=== PATIENT | female | born 1950 | race Caucasian/White ===

== ENCOUNTER 2024-05-10 13:52 | Outpatient (AMB) | payer MEDICARE, SELFPAY ==
[2024-05-10 14:05] VITALS: BP 124/60; PULSE 95; RESP 12; O2SAT 98; BMI 30.3
--- NOTE | 2024-05-10 14:05 | MHC.PC.OV ---
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 Patient reports her previous provider was through [facility]. There are no medical records found in the chart today. Catering Operations Manager Required: No Accompanied by: Self / Same As Patient Allergies No Known Allergies Allergy (Verified 05/10/24 14:12) Tobacco use date assessed: 05/10/24 Fall risk assessment: No Falls in past year Last assessed Fall Risk: 05/10/24 Dental Screening Dental Screen Date: 05/10/24 Did you have a dental visit in the last 12 months?: No Did you have a dental problem in the last 6 months where you did not have access to dental care?: No Was dental information given to patient?: Patient has dentist HPI HPI Comments History of Present Illness Details The patient is a 73-year-old female with a medical history of hypertension, hyperlipidemia, hypothyroid breast cancer, insomnia, allergies, insomnia, B12 deficiency, arthritis presenting to establish care. CV: On amlodipine, aspirin, lipitor. 124/60. Denies chest pain, shortness of breath. Hypothyroid: On levothyroxine 75 mg daily. CKD: Stage 3. Stable Heme/Onc: tamoxifene 20mg daily. Follows with Dr Hansen : On mirtazipine, trazodone. Colonoscopy due 2028 Breast cancer screening 11/2022 [facility] Medical History (Updated 05/20/24 @ 09:50 by Susan Aguirre MD) Breast cancer Asthma Surgical History History of breast surgery History of brain surgery Family History Other Family history unknown Social History Household Members: Spouse Housing: House Are you a primary director of primary care to a significant other at home: No Do you presently have visiting nurse or other home services: No 75 years or older and lives alone: No Alcohol intake: current Alcohol intake frequency: holidays/special occasions only Patient Tobacco Use Status: Never used Tobacco e-Cigarette/Vaping Use: Never Used service: No Current occupational status: retired Current occupational exposures/hazards: No Cognitive needs: No Hearing needs: No Vision needs: No Questionnaire PHQ-9 Over the last 2 weeks, how often have you been bothered by any of the following problems? 1. Little interest or pleasure in doing things: not at all 2. Feeling down, depressed, or hopeless: not at all 3. Trouble falling or staying asleep, or sleeping too much: nearly every day 4. Feeling tired or having little energy: not at all 5. Poor appetite or overeating: not at all 6. Feeling bad about yourself - or that you are a failure or have let yourself or your family down: not at all 7. Trouble concentrating on things, such as reading the newspaper or watching television: not at all 8. Moving or speaking so slowly that other people could have noticed. Or the opposite - being so fidgety or restless that you have been moving around a lot more than usual: not at all 9. Thoughts that you would be better off or of hurting yourself in some way: not at all Total score: 3 Depression Screening Interpretation: Negative (neg) Depression Screening Done: Yes 16413 - PHQ-9 Billing: Yes Source: Developed by Drs. Kal Milian, Regina Mijares, Harinder Magaña and colleagues, with an educational jia from [employer]. Thrive Questionnaire Date Thrive assessed: 05/10/24 I am a: Patient What is your living situation today?: I have a steady place to live Within the past 12 months, did the food you bought not last and you didn't have the money to get more?: Never true Within the past 12 months, did you worry whether your food would run out before you got money to buy more?: Never true Do you have trouble paying for medicines?: No Do you have trouble getting transportation to medical appointments?: No Do you have trouble paying your heating and electricity bill?: No Do you have trouble taking care of your child, family member or friend?: No Do you have trouble with day-to-day activities such as bathing, preparing meals, shopping, managing finances, etc.?: No Are you currently unemployed and looking for a job?: No Are you interested in more education?: No Please select the resources that you would like help with: None Currently or been in a relationship where the following occur: No concerns reported THRIVE Score: 0 AUDIT C Alcohol Use Questionnaire (AUDIT-C) 1. How often do you have a drink containing alcohol?: Monthly or less 2. How many drinks containing alcohol do you have on a typical day when you are drinking?: 1 or 2 3. How often do you have six or more drinks on one occasion?: Never Total Score: 1 ALANA-7 AMB Questionnaire ALANA-7 Date ALANA - 7 assessed: 05/10/24 Feeling nervous, anxious, or on edge: 0 = Not at all Not being able to stop or control worryin = Not at all Worrying too much about different things: 0 = Not at all Trouble relaxin = Not at all Being so restless that it is hard to sit still: 0 = Not at all Becoming easily annoyed or irritable: 0 = Not at all Feeling afraid as if something awful might happen: 0 = Not at all Total ALANA-7 score (0-4 normal; 5-9 mild; 10-14 moderate; 15-21 severe): 0 Source: Developed by Drs. Kal Milian, Regina Mijares, Harinder Magaña and colleagues, with an educational jia from [employer]. ALANA-7 Assessment Billing ALANA-7 Assessment Tool: ALANA-7 Assessment 04495 ACT Questionnaire In the past 4 weeks, how much of the time did your asthma keep you from getting as much done at work, school or at home?: None of the time During the past 4 weeks, how often have you had shortness of breath?: Not at all During the past 4 weeks, how often did your asthma symptoms wake you up at night or earlier than usual in the morning?: Not at all During the past 4 weeks, how often have you had to use your rescue inhaler or nebulizer medication?: Once a week or less How would you rate your asthma control during the past 4 weeks?: Well controlled ACT Interpretation: Negative Score: 23 Physical exam (Primary Care) Vital Signs: Last Vital Signs Pulse 95 05/10/24 14:05 Resp 12 05/10/24 14:05 BP 124/60 05/10/24 14:05 Pulse Ox 98 05/10/24 14:05 Oxygen Delivery Method Room Air 05/10/24 14:05 BMI result Body Mass Index 30.3 Tobacco/Smoking Status: Tobacco use Status Tobacco use date assessed 05/10/24 05/10/24 14:16 Patient Tobacco Use Status Never used Tobacco 05/10/24 14:16 e-Cigarette/Vaping Use Never Used 05/10/24 14:16 PHQ-9: PHQ-9 Score PHQ-9: Total score 3 05/20/24 09:51 Depression Screening Interpretation: Negative (neg) Thrive Assessment: Date of Thrive Assessment Date Thrive assessed 05/10/24 05/10/24 14:16 Currently or been in a relationship where the following occur: No concerns reported Assessment and Plan Assessment & Plan (1) Establishing care with new doctor, encounter for: Code(s): Z76.89 - Persons encountering health services in other specified circumstances Plan: 73 year old to establish care. Past medical, surgical, social and family history reviewed. Chart updated. (2) Hypertension: Code(s): I10 - Essential (primary) hypertension Qualifiers: Hypertension type: primary hypertension Qualified Code(s): I10 - Essential (primary) hypertension Plan: Controlled on current medications which will be continued (3) Hyperlipidemia: Code(s): E78.5 - Hyperlipidemia, unspecified Qualifiers: Hyperlipidemia type: mixed hyperlipidemia Qualified Code(s): E78.2 - Mixed hyperlipidemia (4) Breast cancer: Code(s): C50.919 - Malignant neoplasm of unspecified site of unspecified female breast Qualifiers: Breast location: unspecified site of breast Estrogen receptor status: unspecified Laterality: unspecified laterality Patient sex: female Qualified Code(s): C50.919 - Malignant neoplasm of unspecified site of unspecified female breast Plan: continue tamoxifen. UTD screening Orders: Orders TSH reflex Free T4 05/10/24 I10 - Essential (primary) hypertension, E78.5 - Hyperlipidemia, unspecified Basic Metabolic Panel 05/10/24 E78.5 - Hyperlipidemia, unspecified, I10 - Essential (primary) hypertension Medications: New cyanocobalamin (vitamin B-12) 500 mcg PO DAILY 90 tabs 3RF 90 days Coding Level of Care Code New Pt Level 4 (50790) Complex EM visit Add On G2211 Diagnoses Establishing care with new doctor, encounter for Z76.89 Primary hypertension I10 Hypertension type: primary hypertension Mixed hyperlipidemia E78.2 Hyperlipidemia type: mixed hyperlipidemia Malignant neoplasm of female breast, unspecified estrogen receptor status, unspecified laterality, unspecified site of breast C50.919 Breast location: unspecified site of breast Estrogen receptor status: unspecified Laterality: unspecified laterality Patient sex: female Additional Codes ALANA-7 Assessment Billing - ALANA-7 Assessment Tool: ALANA-7 Assessment 41508 ([id number])
== END 2024-05-10 15:24 | disposition home or self-care (01) ==
PROVIDERS: Visit Provider Internal Medicine
DX: I10 Essential (primary) hypertension (principal); E78.2 Mixed hyperlipidemia; C50.919 Malignant neoplasm of unspecified site of unspecified female breast; Z76.89 Persons encountering health services in other specified circumstances
CPT/HCPCS: 99204; G2211

== ENCOUNTER 2024-05-10 15:12 | Outpatient (REF) | payer MEDICARE, SELFPAY ==
[2024-05-10 18:13] LABS: Anion Gap 13 (12-20); Blood Urea Nitrogen 19 mg/dL (9-16); Calcium 10.2 mg/dL (8.4-10.2); Carbon Dioxide 26 mmol/L (22-29); Chloride 107 mmol/L (96-108); Estimated Glomerular Filt Rate 37; Glucose Random 102 mg/dL (60-115); Sodium 142 mmol/L (135-145)
[2024-05-10 18:31] LABS: TSH reflex Free T4 0.88 uIU/mL (0.32-4.0)
== END 2024-05-10 15:13 | disposition home or self-care (01) ==
LOC: HO.WFDLDS 15:12
PROVIDERS: Visit Provider Internal Medicine
DX: I10 Essential (primary) hypertension (principal); E78.5 Hyperlipidemia, unspecified
CPT/HCPCS: 36415; 80048; 84443

== ENCOUNTER 2024-12-27 10:13 | Outpatient (AMB) | payer MEDICARE, SELFPAY ==
--- NOTE | 2024-12-27 10:17 | A.OFFPC_ITS ---
Intake Visit Reasons: awv Intake Note: Medical annual wellness Pricing Actuary Required: No Allergies No Known Allergies Allergy (Verified 12/27/24 10:18) Tobacco use date assessed: 12/27/24 Last assessed Fall Risk: 12/27/24 Dental Screening Dental Screen Date: 05/10/24 [facility] Medical History (Updated 05/20/24 @ 09:50 by Susan Aguirre MD) Breast cancer Asthma Surgical History History of breast surgery History of brain surgery Family History Other Family history unknown Social History Household Members: Spouse Housing: House Are you a primary health care coach to a significant other at home: No Do you presently have visiting nurse or other home services: No 75 years or older and lives alone: No Alcohol intake: current Alcohol intake frequency: holidays/special occasions only Patient Tobacco Use Status: Never used Tobacco e-Cigarette/Vaping Use: Never Used service: No Current occupational status: retired Current occupational exposures/hazards: No Cognitive needs: No Hearing needs: No Vision needs: No Questionnaire Thrive Questionnaire Date Thrive assessed: 12/27/24 I am a: Patient What is your living situation today?: I have a steady place to live Within the past 12 months, did the food you bought not last and you didn't have the money to get more?: Often true Within the past 12 months, did you worry whether your food would run out before you got money to buy more?: Sometimes True Do you have trouble paying for medicines?: No Do you have trouble getting transportation to medical appointments?: No Do you have trouble paying your heating and electricity bill?: No Do you have trouble taking care of your child, family member or friend?: No Do you have trouble with day-to-day activities such as bathing, preparing meals, shopping, managing finances, etc.?: No Are you currently unemployed and looking for a job?: No Are you interested in more education?: No Please select the resources that you would like help with: Food Currently or been in a relationship where the following occur: No concerns reported THRIVE Score: 2 ALANA-7 AMB Questionnaire ALANA-7 Date ALANA - 7 assessed: 12/27/24 Source: Developed by Drs. Kal Milian, Regina Mijares, Harinder Magaña and colleagues, with an educational ija from [employer]. Physical exam (Primary Care) Tobacco/Smoking Status: Tobacco use Status Tobacco use date assessed 05/10/24 05/10/24 14:16 Patient Tobacco Use Status Never used Tobacco 05/10/24 14:16 e-Cigarette/Vaping Use Never Used 05/10/24 14:16 Thrive Assessment: Date of Thrive Assessment Date Thrive assessed 11/16/24 12/27/24 10:15 Currently or been in a relationship where the following occur: No concerns reported Coding
--- NOTE | 2024-12-27 10:28 | AM.OFFVISMDC ---
Intake Vital Signs 12/27/24 10:36 Height 4 ft 8 in BP 116/60 Blood Pressure Location Rt brachial Respiration 14 Pulse 76 Pulse Source Pulse Oximeter Pulse Oximetry (%) 97 Oxygen Delivery Method Room Air Intake Visit Reasons: awv Intake Note: Medical annual wellness Subsurface Augmentee Operator Required: No Allergies No Known Allergies Allergy (Verified 12/27/24 10:26) HPI HPI Comments History of Present Illness Details The patient is a 74-year-old female with a medical history of hypertension, hyperlipidemia, hypothyroid breast cancer, insomnia, allergies, insomnia, B12 deficiency, arthritis presenting to for AWV CV: On amlodipine, aspirin, lipitor. 124/60. Denies chest pain, shortness of breath. Hypothyroid: On levothyroxine 75 mg daily. Last TSH normal CKD: Stage 3. Stable Heme/Onc: tamoxifen 20mg daily. Follows with Dr Hansen. UTD BH: On mirtazpine trazodone. Still has a great deal of trouble sleeping even with both medications [facility] Colonoscopy due 2028 Breast cancer screening November 2023 Care team reviewed-see HPI See MWV documentation HRA scanned in addition ROS CONSTITUTIONAL: Denies weight loss, fever and chills. HEENT: Denies changes in vision and hearing. RESPIRATORY: Denies SOB and cough. CV: Denies palpitations and CP GI: Denies abdominal pain, nausea, vomiting and diarrhea. : Denies dysuria and urinary frequency. MSK: Denies new myalgia and joint pain. SKIN: Denies rash and pruritus. NEUROLOGICAL:see HPI PSYCHIATRIC: Denies recent changes in mood. PHYSICAL EXAM: GENERAL: Alert and oriented x 3. NAD EYES: EOMI. Anicteric. HENT: Moist mucous membranes. No scleral icterus. No cervical lymphadenopathy. LUNGS: Clear to auscultation bilaterally. CARDIOVASCULAR: Regular rate and rhythm. No murmur. No JVD. ABDOMEN: Soft, non-tender +bs EXTREMITIES: No edema. Non-tender. SKIN: No rashes or lesions. Warm. NEUROLOGIC: No focal neurological deficits. CN II-XII grossly intact PSYCHIATRIC: Cooperative. Appropriate mood and affect [facility] Medical History Breast cancer Asthma Surgical History History of breast surgery History of brain surgery Family History Other Family history unknown Social History Household Members: Spouse Housing: House Are you a primary certified social workers in health care to a significant other at home: No Do you presently have visiting nurse or other home services: No 75 years or older and lives alone: No Alcohol intake: current Alcohol intake frequency: holidays/special occasions only Patient Tobacco Use Status: Never used Tobacco e-Cigarette/Vaping Use: Never Used service: No Current occupational status: retired Current occupational exposures/hazards: No Cognitive needs: No Hearing needs: No Vision needs: No Questionnaire Medicare Wellness Checkup [age] What gender do you identify with?: female During the past 4 weeks, how much have you been bothered by emotional problems such as feeling anxious, depressed, irritable, sad or downhearted, and blue?: not at all During the past 4 weeks, has your physical & emotional health limited your social activities with family, friends, neighbors, or groups?: not at all During the past 4 weeks, how much bodily pain have you generally had?: no pain During the past 4 weeks, was someone available to help you if you needed & wanted help?: yes, as much as I wanted During the past 4 weeks, what was the hardest physical activity you could do for at least 2 minutes?: moderate Can you get to places out of walking distance without help? (For eg., can you travel alone on buses, taxis or drive your car?): Yes Can you go shopping for groceries or clothes without someone's help?: Yes Can you prepare your own meals?: Yes Can you do your housework without help?: Yes Because of any health problems, do you need the help of another person with your personal care needs such as eating, bathing, dressing or getting around the house?: No Can you handle your own money without help?: Yes During the past 4 weeks, how would you rate your health in general?: very good During the past 4 weeks how have things been going for you?: pretty well Are you having difficulties driving your car?: no Do you always fasten your seat belt when you are in a car?: yes, usually During past 4 weeks, have you been bothered by the following: never: Sexual problems?, Trouble eating well? and Problems using the telephone?, seldom: Falling or dizzy when standing up and Tiredness or fatigue? and sometimes: Teeth or denture problems? Have you fallen 2 or more times in the past year?: Yes Are you afraid of falling?: No Are you a smoker?: no During the past 4 weeks, how many drinks of wine, beer, or other alcoholic beverages did you have?: 1 drink or less per week Do you exercise for about 20 minutes 3 or more times a week?: yes, some of the time Have you been given information to help with the following?: yes: Keeping track of your medications? and no: Hazards in your house that might hurt you? How often do you have trouble taking medicines the way you have been told to take them?: I always take medicine as prescribed How confident are you that you can control & manage most of your health problems?: very confident What is your race?: White Mini Mental State Exam (MMSE) Orientation What is the (year) (season) (date) (day) (month)?: year (2024), season (spring), date (), day () and month (2024) Where are we (state) (county) (town or city) (hospital) (floor)?: state ([place]), county ([place]), town or city ([place]), hospital/clinic ([facility]) and floor (first ) Registration Name of 3 unrelated objects clearly and slowly, then ask patient to repeat all 3 of them. (1st repeat determines score. Make sure they can repeat all three): object 1 (ba), object 2 (flag) and object 3 (tree) Attention & Calculation (CHOOSE ONE) Ask pt to begin with 100 & count backward by 7. Stop after 5 repeats. If pt cannot ask them to spell the word WORLD backward.: 93 (93) and 86 Spell WORLD backwards (DLROW): 5 letters Recall Ask patient to repeat the 3 items from question #3.: object 1 (ball) and object 2 (tree) Language Show patient a wristwatch & ask what it is. Repeat for pencil.: watch and pencil Ask the patient to repeat the phrase 'No ifs, ands, or buts' after you.: incorrect Ask the patient to 'take a piece of paper with their right hand' 'fold paper in half' 'place paper on floor': take paper in right hand, fold paper in half and place paper on floor Print the sentence 'CLOSE YOUR EYES' on a piece. If patient actually closes eyes then score.: followed written direction Give patient a blank piece of paper & ask to write a sentence. Score if it contains a noun & verb.: sentence contains subject and verb Ask patient to copy figure of intersecting pentagons exactly. Score if all 10 angles & 2 intersects are included.: all 10 angles present & 2 are intersected Score Score: 30 Activity of Daily Living Bathing - sponge bath, tub bath or shower: receives no assistance (gets in/out by self, if usual bathing means Dressing - getting clothes from closets & drawers, including inner/outer garments & fasteners.: gets clothes & gets completely dressed without help Toileting - going to the 'toilet room' for urine/bowel elimination & cleaning self/arranging clothes: goes to toilet room, cleans self, arranges clothes without help Transfer: moves in & out of bed and chair without help (may use support object) Continence: controls urination/bowel movements completely by self Feeding: feeds self without help Total Score: 0 Information obtained from: patient Using telephone: independent Traveling: independent Shopping: independent Preparing meals: independent Housework: independent Taking medicine: independent Managing money: independent PHQ-9 Over the last 2 weeks, how often have you been bothered by any of the following problems? 1. Little interest or pleasure in doing things: not at all 2. Feeling down, depressed, or hopeless: not at all 3. Trouble falling or staying asleep, or sleeping too much: not at all 4. Feeling tired or having little energy: not at all 5. Poor appetite or overeating: not at all 6. Feeling bad about yourself - or that you are a failure or have let yourself or your family down: not at all 7. Trouble concentrating on things, such as reading the newspaper or watching television: not at all 8. Moving or speaking so slowly that other people could have noticed. Or the opposite - being so fidgety or restless that you have been moving around a lot more than usual: not at all 9. Thoughts that you would be better off or of hurting yourself in some way: not at all Total score: 0 Depression Screening Interpretation: Negative Depression Screening Done: Yes 92146 - PHQ-9 Billing: Yes Source: Developed by Drs. Kal Milian, Regina Mijares, Harinder Magaña and colleagues, with an educational jia from [employer]. Physical Exam Vital Signs: Last Vital Signs Pulse 76 12/27/24 10:36 Resp 14 12/27/24 10:36 BP 116/60 12/27/24 10:36 Pulse Ox 97 12/27/24 10:36 Oxygen Delivery Method Room Air 12/27/24 10:36 Assessment & Plan Assessment & Plan (1) Medicare annual wellness visit, subsequent: Code(s): Z00.00 - Encounter for general adult medical examination without abnormal findings (2) Hyperlipidemia: Code(s): E78.5 - Hyperlipidemia, unspecified Qualifiers: Hyperlipidemia type: mixed hyperlipidemia Qualified Code(s): E78.2 - Mixed hyperlipidemia (3) Hypertension: Code(s): I10 - Essential (primary) hypertension Qualifiers: Hypertension type: primary hypertension Qualified Code(s): I10 - Essential (primary) hypertension (4) Breast cancer: Code(s): C50.919 - Malignant neoplasm of unspecified site of unspecified female breast Qualifiers: Breast location: unspecified site of breast Estrogen receptor status: unspecified Laterality: unspecified laterality Patient sex: female Qualified Code(s): C50.919 - Malignant neoplasm of unspecified site of unspecified female breast Plan MWV-see note. HRA reviewed. No concerns. Falls are mechanical. Advised more caution, slower positional changes HTN is well controlled. Lipids ordered Hypothyroid stable on medications Insomnia-stop remeron. start temazepam. Do just this. If still has continued difficulty add back on trazodone but just start with temazepam trial only Orders: Orders TSH reflex Free T4 Today C50.919 - Malignant neoplasm of unspecified site of unspecified female breast, E78.2 - Mixed hyperlipidemia, I10 - Essential (primary) hypertension, Z00.00 - Encounter for general adult medical examination without abnormal findings Lipid Panel Today C50.919 - Malignant neoplasm of unspecified site of unspecified female breast, E78.2 - Mixed hyperlipidemia, I10 - Essential (primary) hypertension, Z00.00 - Encounter for general adult medical examination without abnormal findings Vitamin B12 and Folate Today C50.919 - Malignant neoplasm of unspecified site of unspecified female breast, E78.2 - Mixed hyperlipidemia, I10 - Essential (primary) hypertension, Z00.00 - Encounter for general adult medical examination without abnormal findings Complete Blood Count Auto Diff Today C50.919 - Malignant neoplasm of unspecified site of unspecified female breast, E78.2 - Mixed hyperlipidemia, I10 - Essential (primary) hypertension, Z00.00 - Encounter for general adult medical examination without abnormal findings Comprehensive Met. Panel Today C50.919 - Malignant neoplasm of unspecified site of unspecified female breast, E78.2 - Mixed hyperlipidemia, I10 - Essential (primary) hypertension, Z00.00 - Encounter for general adult medical examination without abnormal findings Hemoglobin A1c Today C50.919 - Malignant neoplasm of unspecified site of unspecified female breast, E78.2 - Mixed hyperlipidemia, I10 - Essential (primary) hypertension, Z00.00 - Encounter for general adult medical examination without abnormal findings Medications: New temazepam 15 mg PO BEDTIME PRN 90 caps 1RF sleep Discontinued mirtazapine Discontinued Reason: Duplicate 15 mg PO BEDTIME 90 tabs 3RF Quality Reporting (2019) Depression/Bipolar (159/160/161/177) PHQ-9: Total score: 0 Coding Level of Care Code Medicare Subsequent (G0439) Diagnoses Medicare annual wellness visit, subsequent Z00.00 Mixed hyperlipidemia E78.2 Hyperlipidemia type: mixed hyperlipidemia Primary hypertension I10 Hypertension type: primary hypertension Malignant neoplasm of female breast, unspecified estrogen receptor status, unspecified laterality, unspecified site of breast C50.919 Breast location: unspecified site of breast Estrogen receptor status: unspecified Laterality: unspecified laterality Patient sex: female Additional Codes PHQ-9 - 64639 - PHQ-9 Billing: Yes ([id number])
[2024-12-27 10:36] VITALS: BP 116/60; PULSE 76; RESP 14; O2SAT 97
--- OUTSIDE RECORDS SUMMARY | 2024-12-27 11:40 | XMS_ITS | Clinical Summary ---
Author Organization [facility] 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 Name Role Phone Susan Aguirre MD Primary Care Provider [phone] Allergies Active Allergy Reactions Criticality Noted Date Comments Adhesive Tape 01/06/2023 Bee Venom 01/07/2023 Medications simvastatin (ZOCOR) 40 MG tablet Take 40 mg by mouth 1 (one) time each day 0 Active levothyroxine (SYNTHROID, LEVOTHROID) 75 MCG tablet Take 75 mcg by mouth every morning 0 Active cetirizine (ZyrTEC) 10 MG tablet Take 1 tablet by mouth 1 (one) time each day 2 Active amLODIPine (NORVASC) 5 MG tablet Take 5 mg by mouth 1 (one) time each day in the evening 0 Active traZODone (DESYREL) 100 MG tablet Take 1 tablet by mouth at bed time 0 Active atorvastatin (LIPITOR) 10 MG tablet Take 10 mg by mouth 1 (one) time each day 2 Active albuterol HFA (PROVENTIL HFA;VENTOLIN HFA) 108 (90 Base) MCG/ACT inhaler Inhale 2 puffs every 4 (four) hours if needed 2 Active fluticasone (FLONASE) 50 MCG/ACT nasal spray Administer 50 mcg into affected nostril(s) 2 (two) times a day 2 Active Calcium Carb-Cholecalci ferol 600-10 MG-MCG tablet Take 1 tablet by mouth 2 (two) times a day 2 Active tamoxifen (NOLVADEX) 20 MG chemo tablet Take 20 mg by mouth 1 (one) time each day 1 Active aspirin (ST LEE) 81 MG EC tablet Take 81 mg by mouth 1 (one) time each day Active acetaminophen (TYLENOL) 500 MG tablet Take 500 mg by mouth every 6 (six) hours if needed Active carbamide peroxide (Debrox) 6.5 % otic solution Administer 2 drops into affected ear(s) 2 (two) times a day 2 Active mirtazapine (REMERON) 15 MG tablet Take 1 tablet by mouth every night 3 Active loratadine (CLARITIN) 10 MG tablet Take 10 mg by mouth 1 (one) time each day Active Multiple Vitamin (multivitamin) tablet Take 1 tablet by mouth 1 (one) time each day Active Active Problems Problem Noted Date Diagnosed Date Stage 3a chronic kidney disease 01/06/2023 Hypertension 01/06/2023 Dyslipidemia 01/06/2023 Encounters Date Type Department Care Team Description 10/26/2024 11:40 AM EST Office Visit [facility] [address] [phone] Missael Dowling MD Stage 3a chronic kidney disease (HCC) (Primary Dx); Hypertension; Dyslipidemia from Last 3 Months Family History Medical History Relation Comments Cancer Father lung Cancer Mother brain Hypertension Mother Cancer Sister uterine Relation Status Comments Father Mother Sister Social History Tobacco Use Types Packs/Day Years Used Date Smoking Tobacco: Never Assessed Comments Unknown Sex and Gender Information Value Date Recorded Sex Assigned at Not on file Legal Sex Female 9:30 AM EST Gender Identity Not on file Sexual Orientation Not on file Last Filed Vital Signs Vital Sign Reading Time Taken Comments Blood Pressure 132/78 10/26/2024 11:42 AM EST Pulse 94 10/26/2024 11:42 AM EST Temperature - - Respiratory Rate - - Oxygen Saturation 97% 10/26/2024 11:42 AM EST Inhaled Oxygen Concentration - - Weight 59.4 kg (131 lb) 10/26/2024 11:42 AM EST Height 142.2 cm (4' 8 ) 10/26/2024 11:42 AM EST Body Mass Index 29.37 10/26/2024 11:42 AM EST Plan of Treatment Upcoming Encounters Date Type Department Care Team (Late st Contact Info) Description 10/26/2025 11:40 AM EST Office Visit [facility] [address] [place] [phone] Missael Dowling MD [address] [place] [phone] Health Maintenance Due Date Last Done Comments Breast Cancer Screening 1950 Colorectal Cancer Screening: Annual FOBT 2001 Colorectal Cancer Screening: Colonoscopy 2001 Colorectal Cancer Screening: Sigmoidoscopy 2001 Influenza Vaccine (Season Ended) 2025 06/02/2023, 07/02/2021, 07/21/2014, Additional history exists Pneumococcal Vaccine: 50+ Years Completed 07/02/2021, 06/15/2020, 06/15/2018 Hepatitis B Vaccine Aged Out No longe r eligible based on patient's age to complete this topic [address] [place] [address] [facility] Medicare [facility] Medicare Care Teams Mill Worker Relationship Specialty Start Date End Date Susan Aguirre MD [address] [place] [address] PCP - General Internal Medicine 10/26/24
--- OUTSIDE RECORDS SUMMARY | 2024-12-27 11:40 | XMS_ITS | Clinical Summary ---
Author Organization [facility] [address] [place] [address] [place] [phone] Phone Care Team Providers Care Metal Stamper Name Role Phone Guillermo Vasquez MD Primary Care Provider [phone] Allergies Active Allergy Reactions Criticality Noted Date Comments Dog Dander 03/09/2024 Other 03/09/2024 Seasonal Medications mirtazapine (REMERON) 15 mg tablet Take 1 tablet (15 mg total) by mouth at bedtime. TAKE 1 TABLET BY MOUTH EVERY DAY FOR SLEEP Active aspirin (ASPIR-81 ORAL) Take by mouth. Active calcium carbonate-vit D3-min 600 mg-10 mcg (400 unit) tablet Take 1 Tablet by mouth 2 times daily. 05/05/20 24 Active multivit-min/i polly/FA/vit K/lut (MULTIVITAMIN WOMEN 50 PLUS ORAL) Take 1 Tablet by mouth daily. Active acetaminophen (TYLENOL) 500 mg tablet Take 500 mg by mouth every 6 hours as needed. Active albuterol HFA (PROAIR HFA ; PROVENTIL HFA ; VENTOLIN HFA) 90 mcg/actuation inhaler Inhale 2 Puffs into the lungs every 4 hours as needed for Cough, Wheezing or Shortness of Breath. 05/05/20 24 Active cyanocobalamin (VITAMIN B-12) 500 mcg tablet Take 1 Tablet by mouth daily. 11/05/19 24 Active fluticasone propionate (FLONASE) 50 mcg/actuation nasal spray 1 [place] by Nasal route 2 times daily. 05/16/20 22 Active levothyroxine (SYNTHROID, LEVOTHROID) 75 mcg tablet Take 1 Tablet by mouth daily. 05/05/20 24 Active tamoxifen (NOLVADEX) 20 mg chemo tablet Take 1 Tablet by mouth daily. 07/15/20 24 Active traZODone (DESYREL) 100 mg tablet Take 1 Tablet by mouth at bedtime. 05/05/20 24 Active amLODIPine (NORVASC) 5 mg tablet TAKE 1 TABLET BY MOUTH EVERY EVENING 90 tablet 10/26/19 25 Active calcium carbonate-aftab min D 600 mg-10 mcg (400 unit) per tablet TAKE 1 TABLET BY MOUTH TWICE DAILY 60 tablet 1 11/17/19 25 Active loratadine (CLARITIN) 10 mg tablet TAKE 1 TABLET BY MOUTH EVERY DAY 90 tablet 1 12/10/19 25 Active atorvastatin (LIPITOR) 10 mg tablet TAKE 1 TABLET BY MOUTH DAILY 90 tablet 12/21/19 25 Active atorvastatin (LIPITOR) 10 mg tablet Take 1 Tablet by mouth daily. 05/05/20 24 025 Discontinued loratadine (CLARITIN) 10 mg tablet TAKE 1 TABLET BY MOUTH EVERY DAY 90 tablet 1 11/23/19 25 025 Discontinued Active Problems Problem Noted Date Diagnosed Date Osteopenia 02/04/2022 Overview (08/30/2024): Lumbar spine T -0.3, femur: T -0.3, right femoral neck Tscore -2.3 ( osteopenic) Last Assessment & Plan: I recommended referral to Endocrine to discuss options for treatment given high risk for fracture. She agreed. She was informed that she should hear back in 1-2 weeks with an appointment date. If not, she should call back to our office and inquire on getting this arranged. She voiced understanding and agreed. Ductal carcinoma in situ (DCIS) of right breast 12/26/2020 Overview (08/30/2024): Per biopsy results 12/2020 Intertrigo 11/15/2020 Macromastia 11/15/2020 Neck pain 11/15/2020 Seasonal allergic rhinitis 02/24/2020 Stage 3a chronic kidney disease (CMS/HCC V24, CM S/HCC V28) 02/24/2020 Hypothyroidism, acquired 01/04/2020 Mild intermittent asthma without complication Primary insomnia 01/04/2020 Mixed hyperlipidemia 05/26/2006 Essential hypertension, benign 05/03/2006 Encounters Date Type Department Care Team Description 11/25/2024 2:20 PM EDT - 11/25/2024 11:59 PM EDT Hospital Encounter Radiology Department - [address] [phone] Encounter for screening mammogram for breast cancer Discharge Disposition: Home or Self Care from Last 3 Months Immunizations Name Administration Dates Next Due Influenza trivalent, 0.5mL ( Fluad) 65yo and older 06/02/2023,07/02/2021 Moderna SARS-CoV-2 COVID-19, mRNA, LNP-S, preservative free 03/29/2022,09/21/2021,02/11/2021 Pneumococcal conjugate 13 va lent (Prevnar 13, PCV13) 2mo and older 06/15/2020 Pneumococcal polysaccharide 23 valent (Pneumovax 23) 2yo and older 07/02/2021 Td Tetanus diptheria (Tdvax) 7yo and older 02/05 Tdap Tetanus diptheria acell ular pertussis (Boostrix; Adacel) 7yo and older 03/01/2021 Surgical History Surgery Date Site/Laterality Comments TUBAL LIGATION PROCEDURE: HISTORICAL TUBAL LIGATION TOTAL KNEE ARTHROPLASTY 2018 Right PROCEDURE: HISTORICAL TOTAL KNEE REPLACE OTHER SURGICAL HISTORY 12/2020 PROCEDURE: ---- OTHER ----; COMMENT: right breast partial mastectomy, sentinel lymph node bx, left breast reduction for symmetry OTHER SURGICAL HISTORY Right PROCEDURE: PARTIAL MASTECTOMY BREAST BIOPSY 09/2020 Right PROCEDURE: BX BREAST; PERC NEEDLE CORE W/IMAG GUID BREAST LUMPECTOMY 09/2020 Right PROCEDURE: HISTORICAL BREAST LUMPECTOMY PA BREAST REDUCTION Medical History Medical History Date Comments Mixed hyperlipidemia 05/26/2006 DX:Mixed hy perlipidemia Carcinoma of breast (CMS/HCC V24, CMS/HCC V28) 10/15/2020 DX:Carcinoma of breast (HCC) Essential (primary) hypertension DX:Essential (primary) hypertension Osteopenia DX:Osteopenia Family History Medical History Relation Name Comments No Known Problems Brother 1 No Known Problems Brother 2 No Known Problems Brother 3 Lung cancer Father at age 76, smoker; small cell Hypertension Mother Other cancer Mother brain, nervous system ca age 75 Other cancer Sister 1 Mili Other cancer Sister 2 Lizeth uterine ca Breast cancer Neg Hx Colon cancer Neg Hx Pancreatic cancer Neg Hx Prostate cancer Neg Hx Relation Name Status Comments Brother 1 Alive Brother 2 Alive Brother 3 Alive Daughter Alive Father Alive Mother Alive Sister 1 Mili Sister 2 Lizeth Alive Social History Tobacco Use Types Packs/Day Years Used Date Smoking Tobacco: Former Cigarettes Smokeless Tobacco: Never Alcohol Use Standard Drinks/Week Comments Yes 7 (1 standard drink = 0.6 oz pur e alcohol) Comments No Sex and Gender Information Value Date Recorded Sex Assigned at Not on file Legal Sex Female 6:08 PM EST Gender Identity Not on file Sexual Orientation Not on file Obstetrics History Para Term AB IAB SAB Ectopic Multiple Livin g Live Births 1 Date Outcome GA Total Labor Labor/2nd/3rd Weight Sex Type Anes PTL [place] A1 A5 Name Clin Term Last Filed Vital Signs Vital Sign Reading Time Taken Comments Blood Pressure 126/88 05/05/2024 12:23 PM EDT Pulse 96 05/05/2024 11:37 AM EDT Temperature - - Respiratory Rate - - Oxygen Saturation - - Inhaled Oxygen Concentration - - Weight 62.1 kg (137 lb) 05/05/2024 11:37 AM EDT Height 142.2 cm (4' 8 ) 05/05/2024 11:37 AM EDT Body Mass Index 30.71 05/05/2024 11:37 AM EDT Plan of Treatment Upcoming Encounters Date Type Department Care Team (Late st Contact Info) Description 01/12/2025 2:45 PM EDT Office Visit Adult Medicine [address] [phone] Guillermo Vasquez MD [address] [place] [phone] 02/15/2025 1:00 PM EDT Office Visit General Surgery - [place] [address] [phone] Suasn Leonard MD [address] [phone] Health Maintenance Due Date Last Done Comments RSV Immunization Adult Patients (1 - Risk 60-74 years 1-dose series) 2012 Depression Screening 08/24/2022 Falls Risk Assessment 08/24/2022 Medicare Annual Wellness Visit 08/24/2022 Social Influencers of Health Screening 08/24/2022 Zoster Vaccines (2 of 2) 02/03/2023 023, 07/12/2013, 05/01/2013 Hypertension/CHF/CAD Annual BMP Blood Test 05/05/2025 05/05/2024, 05/05/2024 Breast Cancer Screening 11/25/2026 11/26/19, 11/24/2023, 11/20/2022, Additional history exists Colorectal Cancer Screening: Colonoscopy 11/02/2028 11/02/2018 Cholesterol Screening (Lipid Panel) 11/05/2028 11/05/2023 DTaP,Tdap,and Td Vaccines (4 - Td or Tdap) 03/01/2031 03/01/2021, 05/01/2015, 02/05/2005 Osteoporosis Screening (Bone Density Screening) 01/30/2032 01/29/2022 Hepatitis C Screening Completed 07/02/2021 Pneumococcal Vaccine: 50+ Years Completed 07/02/2021, 06/15/2020, 06/15/2018 COVID-19 Vaccine Completed 07/27/2024, 10/2022, 03/29/2022, Additional history exists Influenza Vaccine Completed 07/27/2024, , 09/16/2022, Additional history exists HIB Vaccines Aged Out No longer eligi ble based on patient's age to complete this topic HPV Vaccines Aged Out No longer eligi ble based on patient's age to complete this topic Hepatitis A Vaccines Aged Out No long er eligible based on patient's age to complete this topic Hepatitis B Vaccines Aged Out No long er eligible based on patient's age to complete this topic IPV Vaccines Aged Out No longer eligi ble based on patient's age to complete this topic MMR Vaccines Aged Out No longer eligi ble based on patient's age to complete this topic Meningococcal ACWY Vaccine Aged Out N o longer eligible based on patient's age to complete this topic Meningococcal B Vaccine Aged Out No l onger eligible based on patient's age to complete this topic RSV Immunization Patients Under 20 months Aged Out No longer eligible based on patient's age to complete this topic Varicella Vaccines Aged Out No longer eligible based on patient's age to complete this topic Procedures Procedure Name Priority Date/Time Associated Diagnosis Comments MG MAMMO DIGITAL SCREENING W JUNIOR BILAT Routine 11/25/2024 2:47 PM EDT Encounter for screening mammogram for breast cancer ANNUAL BMP BLOOD TEST Routine 05/05/2024 LIPID PANEL Routine 11/05/2023 [facility] DEXA AXIAL SKELETON Routine 01/29/2022 10:38 AM EDT Other specified disorders of bone density and structure, multiple sites HEPATITIS C SCREENING Routine 07/02/2021 COLONOSCOPY Routine 11/02/2018 from Last 3 Months or Most Recently Relevant to Health Maintenance Results * MG Mammo Digital Screening w Junior bilat (11/25/2024 2:47 PM EDT) Anatomical Region Laterality Modality Breast Bilateral Mammography 11/26/2024 9:27 AM EDT Impressions 11/26/2024 9:33 AM EDT BILATERAL BREASTS: Benign, no evidence of malignancy. Normal interval follow-up is recommended in 12 months. BREAST DENSITY: B - There are scattered areas of fibroglandular density. BI-RADS CATEGORY: 2 - BENIGN RECOMMENDATION: Screening bilateral mammogram is recommended in 1 year. Mammo Location: [facility], [address] [place] [address], [id number], . -------- FINAL REPORT -------- Dictated By: Millicent Watson Dictated Date: 11/26/2024 09:27 ET Assigned Physician: Millicent Watson Reviewed and Electronically Signed By: Millicent Watson Signed Date: 11/26/2024 09:33 ET Workstation ID: [id number] Transcribed By: Self Edit Transcribed Date: 11/26/2024 09:30 ET Narrative 11/26/2024 9:33 AM EDT STUDY: Bilateral screening mammography with tomosynthesis and CAD History: Personal history of right breast cancer, status post in September 2020. TECHNIQUE: Bilateral full-field digital screening mammography is obtained and read in conjunction with computer-aided detection. ??Tomosynthesis as well as 2-D C view imaging were obtained. ?? COMPARISON: Comparison made to multiple prior, most recent November 24, 2023, and most remote April 01, 2017. RIGHT BREAST: ??Postlumpectomy changes. No significant masses, suspicious calcifications or other abnormalities are seen. LEFT BREAST: ??Status post reduction mammoplasty. No significant masses, suspicious calcifications or other abnormalities are seen. Procedure Note Millicent Watson MD - 11/26/2024 STUDY: Bilateral screening mammography with tomosynthesis and CAD History: Personal history of right breast cancer, status post in September2020. TECHNIQUE: Bilateral full-field digital screening mammography is obtainedand read in conjunction with computer-aided detection. Tomosynthesis aswell as 2-D C view imaging were obtained. COMPARISON: Comparison made to multiple prior, most recent November 24, 2023,and most remote April 01, 2017. RIGHT BREAST: Postlumpectomy changes. No significant masses, suspiciouscalcifications or other abnormalities are seen. LEFT BREAST: Status post reduction mammoplasty. No significant masses,suspicious calcifications or other abnormalities are seen. IMPRESSION: BILATERAL BREASTS: Benign, no evidence of malignancy. Normal intervalfollow-up is recommended in 12 months. BREAST DENSITY: B - There are scattered areas of fibroglandular density. BI-RADS CATEGORY: 2 - BENIGN RECOMMENDATION: Screening bilateral mammogram is recommended in 1 year. Mammo Location: [facility], [address] [place] [address], [id number], . -------- FINAL REPORT -------- Dictated By: Millicent Watson Dictated Date: 11/26/2024 09:27 ET Assigned Physician: Millicent Watson Reviewed and Electronically Signed By: Millicent Watson Signed Date: 11/26/2024 09:33 ET Workstation ID: [id number] Transcribed By: Self Edit Transcribed Date: 11/26/2024 09:30 ET Guillermo Vasquez MD IMG BI PROCEDURES Final Res ult * Annual BMP Blood Test (05/05/2024) Annual BMP Blood Test Abstracted Historical Provider HEALTH MAINTENANCE Final Result * (ABNORMAL) Lipid panel (11/05/2023) LDL/HDL Ratio 2 0 - 4 Triglycerides 144 0 - 150 mg/dL Cholesterol 214(A) 0 - 200 mg/dL HDL 91 >=40 mg/dL LDL Cholesterol 95 0 - 100 mg/dL Blood Venous blood specimen / Unknown Historical Provider LAB BLOOD ORDERABLES Shira l Result * [facility] DEXA AXIAL SKELETON (01/29/2022 10:38 AM EDT) Anatomical Region Laterality Modality Mammography 01/29/2022 9:07 AM EDT Narrative 01/29/2022 10:38 AM EDT [facility] Diagnostic Imaging Department [address] [place], [place] [id number] Patient: ??HUGO SELLERS ?/Age/Sex: 1950 - F Unit#: ??[id number] ? Location/Status: ??SPDIMAM/REG CLI ? Mnemonic/Ordering Site: ??MAMDEXAAX/SPMAM Ordering Physician: ??BRITT SMITH MD [facility] Dexa Axial Skeleton - 01/29/[address]954 HISTORY: ??The patient is a 71-year-old postmenopausal female with clinical concern for metabolic bone disease. FINDINGS: ??Dual energy x-ray absorptiometry of the lumbar spine and femurs is performed. The mean bone mineral density at L1-L4 (with the exclusion of L3) is 1.134 gm/cm2 which is 97% of that of young normals and 119% of that of age matched controls. This yields a T-score of -0.3 and a Z-score of 1.5 and there is therefore no evidence of osteoporosis or osteopenia here. The mean bone mineral density of the femurs bilaterally is 0.968 gm/cm2 which is 96% of that of young normals and 119% of that of age matched controls. ??This yields a T-score of -0.3 and a Z-score of 1.2 and there is therefore no evidence of osteoporosis or osteopenia here. ??However, the T-score of the right femoral neck is -2.3 and that of the left femoral neck is -2.2 which is diagnostic of osteopenia. IMPRESSION: 1. Osteopenia. 2. FRAX analysis yields a 10-year probability of major osteoporotic fracture of 21.0% and a 10-year probability of hip fracture of 4.7%. Code 25574 Dictating Physician: ??ASAD JONES MD Electronically Signed by: ??ASAD JONES MD Dic Date/Time: ??01/29/22 1037 Sign date/Time: ??01/29/22 1038 Procedure Note Asad Jones MD - 09/04/2022 [facility] Diagnostic Imaging Department [address] [place] [address] Patient: HUGO SELLERS /Age/Sex: 1950 71 - F Unit#: [id number] Location/Status: [facility] CLI Mnemonic/Ordering Site: MAMDEXAAX/SPMAM Ordering Physician: BRITT SMITH MD [facility] Dexa Axial Skeleton - 01/29/[address]954 HISTORY: The patient is a 71-year-old postmenopausal female withclinical concern for metabolic bone disease. FINDINGS: Dual energy x-ray absorptiometry of the lumbar spine and femursis performed. The mean bone mineral density at L1-L4 (with the exclusion ofL3) is 1.134 gm/cm2 which is 97% of that of young normals and 119% of that ofage matched controls. This yields a T-score of -0.3 and a Z-score of 1.5 andthere is therefore no evidence of osteoporosis or osteopenia here. The mean bone mineral density of the femurs bilaterally is 0.968 gm/lm6miotg is 96% of that of young normals and 119% of that of age matched controls.This yields a T-score of -0.3 and a Z-score of 1.2 and there is therefore noevidence of osteoporosis or osteopenia here. However, the T-score of the rightfemoral neck is -2.3 and that of the left femoral neck is -2.2 which is diagnosticof osteopenia. IMPRESSION: 1. Osteopenia. 2. FRAX analysis yields a 10-year probability of major osteoporoticfracture of 21.0% and a 10-year probability of hip fracture of 4.7%. Code 09290 Dictating Physician: ASAD JONES MD Electronically Signed by: ASAD JONES MD Dic Date/Time: 01/29/22 1037 Sign date/Time: 01/29/22 1038 Britt Smith MD IMG BI PROCEDURES Final Resu lt * Hepatitis C Screening (07/02/2021) Hepatitis C Screening Abstracted Historical Provider HEALTH MAINTENANCE Final Result * Colonoscopy (11/02/2018) Colonoscopy No Interpretation , Abstracted Anatomical Region Laterality Modality Other Historical Provider HEALTH MAINTENANCE Final Result from Last 3 Months or Most Recently Relevant to Health Maintenance Insurance [address] [place] [address] [employer] MEDICARE MEDICAID - [place] Care Teams Metal Stamper Relationship Specialty Start Date End Date Guillermo Vasquez MD [address] [place] [address] PCP - General Internal Medicine 04/15/22
--- OUTSIDE RECORDS SUMMARY | 2024-12-27 11:40 | XMS_ITS | Clinical Summary ---
Author Organization [facility] Address [address] [place] [address] Care Team Providers Care Reporting Lead Name Role Phone Gabbie Sanchez MD Primary Care Provider Allergies No known active allergies Medications Medication Sig Dispensed Refills Start Date End Date Status albuterol 108 (90 Base) MCG/ACT inhaler Inhale 2 puffs into the lungs. 0 11/27/2020 Active amLODIPine (NORVASC) tablet 5 mg Take 5 mg by mouth every evening. 0 10/08/2020 Active acetaminophen (TYLENOL EXTRA STRENGTH) 500 MG tablet Take 500 mg by mouth. 0 Active fluticasone (FLONASE) 50 MCG/ACT nasal spray SHAKE LIQUID AND USE 1 SPRAY IN EACH NOSTRIL TWICE DAILY 0 10/26/2020 Active levothyroxine (SYNTHROID) tablet 75 mcg Take 75 mcg by mouth every morning. before breakfast 0 12/20/2020 Active traZODone (DESYREL) 100 MG tablet Take 150 mg by mouth every night at bedtime. 0 12/04/2020 Active simvastatin (ZOCOR) tablet 40 mg Take 1 tablet by mouth every night at bedtime. 0 06/27/2020 Active aspirin 81 MG EC tablet Take by mouth. 0 Active tamoxifen (NOLVADEX) 20 MG tablet TAKE 1 TABLET(20 MG) BY MOUTH DAILY 30 tablet 0 05/25/2024 Active Active Problems No known active problems Social History Tobacco Use Types Packs/Day Years Used Date Smoking Tobacco: Former Smokeless Tobacco: Never Alcohol Use Standard Drinks/Week Comments Not Currently 0 (1 standard drink = 0.6 oz pur e alcohol) Sex and Gender Information Value Date Recorded Sex Assigned at Female 01/02/2021 1:34 PM EDT Gender Identity Not on file Sexual Orientation Not on file Last Filed Vital Signs Vital Sign Reading Time Taken Comments Blood Pressure 129/51 08/30/2021 1:12 PM EST Pulse 74 08/30/2021 1:12 PM EST Temperature 36.4 ??C (97.6 ??F) 08/30/2021 1:12 PM ES T Respiratory Rate - - Oxygen Saturation 97% 08/30/2021 1:12 PM EST Inhaled Oxygen Concentration - - Weight 61.7 kg (136 lb) 08/30/2021 1:12 PM EST Height 142.2 cm (4' 8 ) 08/30/2021 1:12 PM EST Body Mass Index 30.49 08/30/2021 1:12 PM EST Plan of Treatment Health Maintenance Due Date Last Done Comments Hepatitis C Screening 1950 Depression Screening 1964 BMI Counseling 1970 Preventative Health Evaluation 1970 Colon Cancer Screening (Colonoscopy) 1997 Breast Cancer Screening (Mammogram) 2002 Shingrix-Zoster Vaccine (1 of 2) 2002 Fall Risk Assessment 2017 Osteoporosis Screening (DEXA Scan) 2017 COVID-19 Vaccine ( season) 2024 01/14/2021 Influenza Vaccine (#1) 2024 3, 07/02/2021, 07/06/2019, Additional history exists RSV Adult > 60+ Yrs or (1 - 1-dose 75+ series) 2027 DTap / Tdap / Td (2 - Td or Tdap) 03/01/2031 03/01/2021 Pneumococcal Vaccine Completed 07/02/2021, 06/15/2020, 06/15/2018 Hepatitis B Vaccines Aged Out No long er eligible based on patient's age to complete this topic RSV Ped < 20 months Aged Out No longe r eligible based on patient's age to complete this topic Care Teams Reporting Lead Relationship Specialty Start Date End Date Gabbie Sanchez MD PCP - General Internal Medicine 08/30/21
== END 2024-12-27 11:09 | disposition home or self-care (01) ==
LOC: HO.HMCFM 10:15
PROVIDERS: PCP Internal Medicine; Visit Provider Internal Medicine
DX: Z00.00 Encounter for general adult medical examination without abnormal findings (principal); C50.919 Malignant neoplasm of unspecified site of unspecified female breast; I10 Essential (primary) hypertension; E78.2 Mixed hyperlipidemia

== ENCOUNTER → 2024-12-27 10:13 | Outpatient (BNVA) | payer MEDICARE, SELFPAY | PROVIDERS: PCP Internal Medicine; Visit Provider Internal Medicine | DX: Z00.00 Encounter for general adult medical examination without abnormal findings (principal); C50.919 Malignant neoplasm of unspecified site of unspecified female breast; I10 Essential (primary) hypertension; E78.2 Mixed hyperlipidemia | CPT/HCPCS: 96127 ==

== ENCOUNTER 2025-05-27 13:54 | Outpatient (AMB) | payer MEDICARE, SELFPAY ==
--- NOTE | 2025-05-27 14:04 | A.OFFPC_ITS ---
Vital Signs 05/27/25 14:07 Height 4 ft 8 in Weight 128 lb 2 oz BMI 28.7 BP 118/66 Blood Pressure Location Lt brachial Position Sitting Respiration 14 Pulse 80 Pulse Source Pulse Oximeter Temp 97.8 F Temp Source Oral Intake Visit Reasons: Dizziness Intake Note: Follow. Dizziness stopped sometime between March and April. Only get dizzy when bending over and getting up fast Outbound Sales Specialist Required: No Allergies No Known Allergies Allergy (Verified 05/27/25 14:05) Tobacco use date assessed: 05/27/25 Fall risk assessment: 2 + Falls in past year (10 times) Last assessed Fall Risk: 05/27/25 Dental Screening Dental Screen Date: 05/27/25 Did you have a dental visit in the last 12 months?: No Did you have a dental problem in the last 6 months where you did not have access to dental care?: No Was dental information given to patient?: Patient declined (has dentures) HPI HPI Comments History of Present Illness Details The patient is a 74-year-old female with a medical history of hypertension, hyperlipidemia, hypothyroid breast cancer, insomnia, allergies, insomnia, B12 deficiency, arthritis presenting for dizziness She woke up got out of bed felt dizzy, continued to be dizzy through the hallway. Went to the fridge. She somehow got flung across the dining room table. She felt off balance for the rest of the day. She has had a few episodes of lightheadedness upon standing and some vertigo when she bend over and gets up. Her blood pressure has been running on the lower side CV: On amlodipine, aspirin, lipitor. Denies chest pain, shortness of breath. Hypothyroid: On levothyroxine 75 mg daily. She is due for labs CKD: Stage 3. Stable Heme/Onc: tamoxifen 20mg daily. Follows with Dr Hansen. MADONNA BH: On temazepam Gets eye exam-[facility] Colonoscopy due 2028 Breast cancer screening November 2023 ROS CONSTITUTIONAL: Denies weight loss, fever and chills. HEENT: Denies changes in vision and hearing. RESPIRATORY: Denies SOB and cough. CV: Denies palpitations and CP GI: Denies abdominal pain, nausea, vomiting and diarrhea. : Denies dysuria and urinary frequency. MSK: Denies new myalgia and joint pain. SKIN: Denies rash and pruritus. NEUROLOGICAL:see HPI PSYCHIATRIC: Denies recent changes in mood. PHYSICAL EXAM: GENERAL: Alert and oriented x 3. NAD EYES: EOMI. Anicteric. HENT: Moist mucous membranes. No scleral icterus. No cervical lymphadenopathy. LUNGS: Clear to auscultation bilaterally. CARDIOVASCULAR: Regular rate and rhythm. No JVD. ABDOMEN: Soft, non-tender +bs EXTREMITIES: No edema. Non-tender. SKIN: No rashes or lesions. Warm. NEUROLOGIC: No focal neurological deficits. CN II-XII grossly intact PSYCHIATRIC: Cooperative. Appropriate mood and affect [facility] Medical History Breast cancer Asthma Surgical History History of breast surgery History of brain surgery Family History Other Family history unknown Social History Household Members: Spouse Housing: House Are you a primary acute care certified nursing assistant to a significant other at home: No Do you presently have visiting nurse or other home services: No 75 years or older and lives alone: No Alcohol intake: current Alcohol intake frequency: holidays/special occasions only Patient Tobacco Use Status: Never used Tobacco e-Cigarette/Vaping Use: Never Used Second Hand Smoke Exposure: No service: No Current occupational status: retired Current occupational exposures/hazards: No Cognitive needs: No Hearing needs: No Vision needs: No Questionnaire Thrive Questionnaire Date Thrive assessed: 05/10/24 I am a: Patient What is your living situation today?: I have a steady place to live Within the past 12 months, did the food you bought not last and you didn't have the money to get more?: Often true Within the past 12 months, did you worry whether your food would run out before you got money to buy more?: Sometimes True Do you have trouble paying for medicines?: No Do you have trouble getting transportation to medical appointments?: No Do you have trouble paying your heating and electricity bill?: No Do you have trouble taking care of your child, family member or friend?: No Do you have trouble with day-to-day activities such as bathing, preparing meals, shopping, managing finances, etc.?: No Are you currently unemployed and looking for a job?: No Are you interested in more education?: No Please select the resources that you would like help with: Food Currently or been in a relationship where the following occur: No concerns reported THRIVE Score: 2 AUDIT C Alcohol Use Questionnaire (AUDIT-C) 1. How often do you have a drink containing alcohol?: Monthly or less 2. How many drinks containing alcohol do you have on a typical day when you are drinking?: 1 or 2 3. How often do you have six or more drinks on one occasion?: Never Total Score: 1 ALANA-7 AMB Questionnaire ALANA-7 Date ALANA - 7 assessed: 05/10/24 Source: Developed by Drs. Kal Milian, Regina Mijares, Harinder Magaña and colleagues, with an educational jia from [employer]. Physical exam (Primary Care) Vital Signs: Last Vital Signs Temp 97.8 F 05/27/25 14:07 Pulse 80 05/27/25 14:07 Resp 14 05/27/25 14:07 BP 118/66 05/27/25 14:07 BMI result Body Mass Index 28.7 Tobacco/Smoking Status: Tobacco use Status Tobacco use date assessed 05/27/25 05/27/25 14:10 Patient Tobacco Use Status Never used Tobacco 05/27/25 14:10 e-Cigarette/Vaping Use Never Used 05/27/25 14:10 Thrive Assessment: Date of Thrive Assessment Date Thrive assessed 05/10/24 05/27/25 14:10 Currently or been in a relationship where the following occur: No concerns reported Coding Level of Care Code Est Pt Level 4 (01771) Diagnoses Dizziness R42 Primary hypertension I10 Hypertension type: primary hypertension Assessment & Plan Assessment & Plan (1) Dizziness: Code(s): R42 - Dizziness and giddiness Category: Medical (2) Hypertension: Code(s): I10 - Essential (primary) hypertension Category: Medical Qualifiers: Hypertension type: primary hypertension Qualified Code(s): I10 - Essential (primary) hypertension Plan Dizziness-suspect orthostasis and BPPV Stop amlodipine. She has an appt in a month for bp follow up Labs are overdue-these are ordered Orders: Orders UA CC w/rflx Micro + Cult Today R42 - Dizziness and giddiness Medications: New meclizine 25 mg PO DAILY PRN 30 tabs 0RF vertigo
[2025-05-27 14:07] VITALS: BP 118/66; PULSE 80; RESP 14; TEMP 36.6; BMI 28.7
--- OUTSIDE RECORDS SUMMARY | 2025-05-27 16:52 | XMS_ITS | Clinical Summary ---
Author Organization [facility] Address [address] [place] [address] Care Team Providers Care Slasher Hand Name Role Phone Gabbie Sanchez MD Primary Care Provider [phone] Allergies No known active allergies Medications Medication [...] 74 08/30/2021 1:12 PM EST Temperature 36.4 C (97.6 F) 08/30/2021 1:12 PM EST Respiratory Rate - - Oxygen Saturation 97% [...] Osteoporosis Screening (DEXA Scan) 2017 COVID-19 Vaccine (2 - season) 2025 01/14/2021 Influenza Vaccine (#1) 2025 3, 07/02/2021, 07/06/2019, Additional history exists RSV [...] age to complete this topic Care Teams Slasher Hand Relationship Specialty Start Date End Date Gabbie Sanchez MD PCP - General Internal Medicine 08/30/21
--- OUTSIDE RECORDS SUMMARY | 2025-05-27 16:52 | XMS_ITS | Clinical Summary ---
Author Organization [facility]. Address [address] [address] [place] [address] Phone Care Team Providers Care Complex Director Name Role Phone Susan Aguirre MD Primary Care Provider [phone] Allergies Active Allergy Reactions Criticality Noted Date [...] kidney disease 01/06/2023 Hypertension 01/06/2023 Dyslipidemia 01/06/2023 Family History Medical History Relation Comments Cancer [...] [facility] [address] [address] Missael Dowling MD [address] [phone] Health Maintenance Due Date Last Done Comments Breast Cancer Screening 1950 Colorectal Cancer Screening: Annual FOBT 2001 Colorectal Cancer Screening: Colonoscopy 2001 Colorectal Cancer Screening: Sigmoidoscopy 2001 Influenza Vaccine (#1) 2025 3, 07/02/2021, 07/21/2014, Additional history exists Pneumococcal Vaccine: 50+ Years Completed 07/02/2021, 06/15/2020, 06/15/2018 Hepatitis B Vaccine Aged Out No longe r eligible based on patient's age to complete this topic [address] [place] [address] [facility] [address] [place] [address] [facility] Medicare Care Teams Complex Director Relationship Specialty Start Date End Date Susan Aguirre MD [address] [place] [address] PCP - General Internal Medicine 10/26/24
--- OUTSIDE RECORDS SUMMARY | 2025-05-27 16:52 | XMS_ITS | Clinical Summary ---
Author Organization [facility] [address] [place] [address] [place] [phone] Phone Care Team Providers Care Retail Cosmetics Sales Counter Manager Name Role Phone Unavailable Primary Care Provider Unavailabl e Allergies Active Allergy Reactions Criticality Noted Date Comments Dog Dander 03/09/2024 Other 03/09/2024 Seasonal Medications mirtazapine (REMERON) 15 mg tablet TAKE 1 TABLET BY MOUTH EVERY DAY FOR SLEEP 90 tablet 1 5 Active aspirin (ASPIR-81 ORAL) Take by mouth. Active calcium carbonate-vit D3-min 600 mg-10 mcg (400 unit) tablet Take 1 Tablet by mouth 2 times daily. 4 Active multivit-min/ir on/FA/vit K/lut (MULTIVITAMIN WOMEN 50 PLUS ORAL) Take 1 Tablet by mouth daily. Active acetaminophen (TYLENOL) 500 mg tablet Take 500 mg by mouth every 6 hours as needed. Active albuterol HFA (PROAIR HFA ; PROVENTIL HFA ; VENTOLIN HFA) 90 mcg/actuation inhaler Inhale 2 Puffs into the lungs every 4 hours as needed for Cough, Wheezing or Shortness of Breath. 4 Active cyanocobalamin (VITAMIN B-12) 500 mcg tablet Take 1 Tablet by mouth daily. 4 Active fluticasone propionate (FLONASE) 50 mcg/actuation nasal spray 1 Harned by Nasal route 2 times daily. 2 Active levothyroxine (SYNTHROID, LEVOTHROID) 75 mcg tablet Take 1 Tablet by mouth daily. 4 Active tamoxifen (NOLVADEX) 20 mg chemo tablet Take 1 Tablet by mouth daily. 4 Active traZODone (DESYREL) 100 mg tablet Take 1 Tablet by mouth at bedtime. 4 Active amLODIPine (NORVASC) 5 mg tablet TAKE 1 TABLET BY MOUTH EVERY EVENING 90 tablet 5 Active calcium carbonate-vitam in D 600 mg-10 mcg (400 unit) per tablet TAKE 1 TABLET BY MOUTH TWICE DAILY 60 tablet 1 5 Active loratadine (CLARITIN) 10 mg tablet TAKE 1 TABLET BY MOUTH EVERY DAY 90 tablet 1 5 Active atorvastatin (LIPITOR) 10 mg tablet TAKE 1 TABLET BY MOUTH DAILY 90 tablet 5 Active Active Problems Problem Noted Date Diagnosed [...] complication Primary insomnia 01/04/2020 Mixed hyperlipidemia 05/26/2006 Primary hypertension 05/03/2006 Encounters Date Type Department Care Team Description 05/11/2025 Telephone Adult Medicine [address] [address] Shireen Borja PA 04/26/2025 2:00 PM EDT Office Visit General Surgery [address] [place] [address] McPartSusan salmeron MD Ductal carcinoma in situ (DCIS) of right breast (Primary Dx) from Last 3 Months Immunizations Name Administration [...] LUMPECTOMY 09/2020 Right PROCEDURE: HISTORICAL BREAST LUMPECTOMY IL BREAST REDUCTION Medical History Medical History Date [...] Ectopic Multiple Livin g Live Births 1 1 1 1 Date Outcome GA Total Labor Labor/2nd/3rd Weight Sex Type Anes PTL Idalia A1 A5 Name Clin Term Last Filed Vital Signs Vital Sign Reading Time Taken Comments Blood Pressure 133/76 04/26/2025 2:12 PM EDT Pulse 56 04/26/2025 2:12 PM EDT Temperature - - Respiratory Rate - - Oxygen Saturation - - Inhaled Oxygen Concentration - - Weight 59.1 kg (130 lb 6.4 oz) 04/26/2025 2:12 P M EDT Height 142.2 cm (4' 8 ) 04/26/2025 2:12 PM EDT Body Mass Index 29.24 04/26/2025 2:12 PM EDT Plan of Treatment Upcoming Encounters Date Type Department Care Team (Late st Contact Info) Description 04/25/2026 3:45 PM EDT Office Visit General Surgery - [address] [place] [address] Susan Leonard MD [address] [place] [phone] Health Maintenance Due Date Last Done Comments RSV Immunization Adult Patients (1 - Risk 60-74 years 1-dose series) 2012 Falls Risk Assessment 08/24/2022 Medicare Annual Wellness Visit 08/24/2022 Social Influencers of Health Screening 08/24/2022 Zoster Vaccines (2 of 2) 02/03/2023 023, 07/12/2013, 05/01/2013 Depression Screening 09/15/2024 Hypertension/CHF/CAD Annual BMP Blood Test 05/05/2025 05/05/2024, 05/05/2024 COVID-19 Vaccine (8 - Moderna risk season) 2025 07/27/2024, 09/16/2022, 03/29/2022, Additional history exists Influenza Vaccine (#1) 2025 4, 06/02/2023, 09/16/2022, Additional history exists Breast Cancer Screening 11/25/2026 11/26/19 25, 11/24/2023, 11/20/2022, Additional history exists Colorectal Cancer Screening: Colonoscopy 11/02/2028 11/02/2018 Cholesterol Screening (Lipid Panel) 11/05/2028 11/05/2023 DTaP,Tdap,and Td Vaccines (4 - Td or Tdap) 03/01/2031 03/01/2021, 05/01/2015, 02/05/2005 Osteoporosis Screening (Bone Density Screening) 01/30/2032 01/29/2022 Hepatitis C Screening Completed 07/02/2021 Pneumococcal Vaccine: 50+ Years Completed 07/02/2021, 06/15/2020, 06/15/2018 HIB Vaccines Aged Out No longer eligi [...] Diagnosis Comments MG MAMMO DIGITAL SCREENING W JUNIRO BILAT Routine 11/25/2024 2:47 PM EDT Encounter for screening mammogram for breast cancer HM ANNUAL BMP BLOOD TEST Routine 05/05/2024 LIPID PANEL Routine 11/05/2023 [facility] DEXA AXIAL SKELETON Routine 01/29/2022 10:38 AM [...] is recommended in 1 year. Mammo Location: [facility], [address] [place] [address], [id number], . -------- FINAL REPORT -------- Dictated By: Millicent Watson Dictated Date: 11/26/2024 09:27 ET Assigned Physician: Millicent Watson Reviewed and Electronically Signed By: Millicent Watson Signed Date: 11/26/2024 09:33 ET Workstation ID: [id number] Transcribed By: Self Edit Transcribed Date: 11/26/2024 09:30 ET Narrative 11/26/2024 9:33 AM EDT STUDY: Bilateral screening mammography with tomosynthesis and CAD History: Personal history of right breast cancer, status post in September 2020. TECHNIQUE: Bilateral full-field digital screening mammography is obtained and read in conjunction with computer-aided detection. Tomosynthesis as well as 2-D C view imaging were obtained. COMPARISON: Comparison made to multiple prior, most recent November 24, 2023, and most remote April 01, 2017. RIGHT BREAST: Postlumpectomy changes. No significant masses, suspicious calcifications or other abnormalities are seen. LEFT BREAST: Status post reduction mammoplasty. No significant masses, suspicious [...] is recommended in 1 year. Mammo Location: [facility], [address] [place] [address], [id number], . -------- FINAL REPORT -------- Dictated By: Millicent Watson Dictated Date: 11/26/2024 09:27 ET Assigned Physician: Millicent Watson Reviewed and Electronically Signed By: Millicent Watson Signed Date: 11/26/2024 09:33 ET Workstation ID: [id number] Transcribed By: Self Edit Transcribed Date: 11/26/2024 09:30 ET us Guillermo Vasquez MD IMG BI PROCEDURES Final Res ult * Annual BMP Blood Test (05/05/2024) Annual BMP Blood Test Abstracted Historical Provider HEALTH MAINTENANCE Final Result * (ABNORMAL) Lipid panel (11/05/2023) [facility] LDL/HDL Ratio 2 0 - 4 Triglycerides 144 0 - 150 mg/dL Cholesterol 214(A) 0 - 200 mg/dL HDL 91 >=40 mg/dL LDL Cholesterol 95 0 - 100 mg/dL Blood Venous blood specimen / Unknown Historical Provider LAB BLOOD ORDERABLES Shira l Result * [facility] DEXA AXIAL SKELETON (01/29/2022 10:38 AM EDT) Anatomical Region Laterality Modality Mammography 01/29/2022 9:07 AM EDT Narrative 01/29/2022 10:38 AM EDT [facility] Diagnostic Imaging Department [address] [place] [address] Patient: SELLERSHUGO D.O.B./Age/Sex: 1950 - 71 - F Unit#: [id number] [facility] Ordering Physician: ADDISON SMITH MD [facility] Dexa Axial Skeleton - 01/29/2279 HISTORY: The patient is a 71-year-old postmenopausal female with clinical concern for metabolic bone disease. FINDINGS: Dual [...] no evidence of osteoporosis or osteopenia here. However, the T-score of the right femoral neck is -2.3 and that of the left femoral neck is -2.2 which is diagnostic of osteopenia. IMPRESSION: 1. Osteopenia. 2. FRAX analysis yields a 10-year probability of major osteoporotic fracture of 21.0% and a 10-year probability of hip fracture of 4.7%. Code 15271 Dictating Physician: ASAD JONES MD Electronically Signed by: ASAD JONES MD Dic Date/Time: 01/29/22 1037 Sign date/Time: 01/29/22 1038 Procedure Note Asad Jones MD - 09/04/2022 [facility] Diagnostic Imaging Department [address] [place] [id number] Patient: VERITOHUGO./Age/Sex: 1950 - F Unit#: [id number] Location/Status: [facility]/REG I Mnemonic/Ordering Site: [facility] Ordering Physician: ADDISON SMITH MD [facility] Dexa Axial Skeleton - 01/29/22 - 0255 HISTORY: The patient is a 71-year-old postmenopausal [...] density of the femurs bilaterally is 0.968 gm/lm2cehhm is 96% of that of young normals [...] probability of hip fracture of 4.7%. Code 73926 Dictating Physician: ASAD JONES MD Electronically Signed by: ASAD JONES MD Dic Date/Time: 01/29/22 1037 Sign date/Time: 01/29/22 1038 Addison Smith MD IMG BI PROCEDURES Final Resu lt * Hepatitis C Screening (07/02/2021) [facility] Hepatitis C Screening Abstracted Historical Provider HEALTH MAINTENANCE Final Result * Colonoscopy (11/02/2018) [facility] Colonoscopy No Interpretation , Abstracted Anatomical Region Laterality Modality Other Historical Vanna WINKLER HEALTH MAINTENANCE Final Result from Last 3 Months or Most Recently Relevant to Health Maintenance Insurance [place] [address] [place]ICA[place]
== END 2025-05-27 14:29 | disposition home or self-care (01) ==
LOC: HO.HMCFM 13:55
PROVIDERS: PCP Internal Medicine; Visit Provider Internal Medicine
DX: R42 Dizziness and giddiness (principal); I10 Essential (primary) hypertension

== ENCOUNTER 2025-05-27 13:54 | Outpatient (REF) | payer MEDICARE, SELFPAY ==
[2025-05-27 17:58] LABS: MANUAL DIFF FLAG NO
[2025-05-27 18:04] LABS: Hematocrit 40.6 % (37.0-47.0); Hemoglobin 13.5 g/dl (12.0-16.0); Imm Gran Abs Auto 0.01 X10*3/uL (0.00-0.03); Imm Gran Pct Auto 0.2 % (0.0-0.4); Lymphocytes Absolute Auto 1.1 X10*3/uL (1.2-4.9); Mean Corpuscular HGB Conc 33.3 g/dl (31.0-35.0); Mean Corpuscular Hemoglobin 28.6 pg (27.0-33.0); Mean Corpuscular Volume 86.0 fL (80.0-98.0); NRBC Abs Auto 0.000 X10*3/uL (0.0-0.012); NRBC Pct Auto 0.0 /100WBC (0.0-0.2); Platelet Count 204 X10*3/uL (160-400); Red Blood Count 4.72 X10*6/uL (4.20-5.50); White Blood Count 6.0 X10*3/uL (4.8-10.8)
[2025-05-27 18:13] LABS: Total Hemoglobin (HGBA1C) 3620.2920 umol/L
[2025-05-27 18:52] LABS: Alanine Aminotransferase 17 U/L (0-31); Albumin Level 4.5 g/dL (3.5-5.0); Alkaline Phosphatase 45 U/L (39-117); Anion Gap 13 (12-20); Aspartate Amino Transferase 23 U/L (5-31); Blood Urea Nitrogen 16 mg/dL (9-16); Calcium 9.3 mg/dL (8.4-10.2); Carbon Dioxide 27 mmol/L (22-29); Chloride 107 mmol/L (96-108); Cholesterol 171 mg/dL (<200); Estimated Glomerular Filt Rate 38; HDL Cholesterol 64 mg/dL (>40); Potassium 3.9 mmol/L (3.3-5.1); Sodium 143 mmol/L (135-145); Total Protein 7.1 g/dL (6.5-8.0); Triglycerides 109 mg/dL (<150)
[2025-05-27 19:12] LABS: Folate 13.2 ng/mL (> or = 4.0); Vitamin B12 784 pg/mL (200-900)
== END 2025-05-27 13:55 | disposition home or self-care (01) ==
LOC: HO.WFDLDS 13:54
PROVIDERS: PCP Internal Medicine; Visit Provider Internal Medicine
DX: Z00.00 Encounter for general adult medical examination without abnormal findings (principal); R42 Dizziness and giddiness; E78.2 Mixed hyperlipidemia; I10 Essential (primary) hypertension; C50.919 Malignant neoplasm of unspecified site of unspecified female breast
CPT/HCPCS: 36415; 80053; 80061; 82607; 82746; 83036; 84443; 85025; 99212

== ENCOUNTER 2025-06-06 14:40 | Outpatient (REF) | payer MEDICARE, SELFPAY ==
[2025-06-06 14:51] LABS: Appearance Urine Clear; Glucose Urine UA Negative (Negative); PH 6.0 (5.0-9.0); Specific Gravity - Urine 1.020 (1.005-1.025); UMIC TRIGGER UACC YES
[2025-06-06 15:11] LABS: UACC Culture Trigger YES
== END 2025-06-06 14:41 | disposition home or self-care (01) ==
LOC: HO.LNP 14:40
PROVIDERS: Visit Provider Internal Medicine
DX: R42 Dizziness and giddiness (principal)
CPT/HCPCS: 81001; 87086

== ENCOUNTER 2025-07-22 11:41 | Outpatient (AMB) | payer MEDICARE, SELFPAY ==
--- NOTE | 2025-07-22 11:47 | A.OFFPC_ITS ---
Vital Signs 07/22/25 11:49 Height 4 ft 8 in Weight 125 lb BMI 28.0 BP 132/66 Blood Pressure Location Lt brachial Position Sitting Respiration 14 Pulse 72 Pulse Source Pulse Oximeter Temp 98.2 F Temp Source Oral Intake Visit Reasons: bp check RE Intake Note: Blood pressure check. Cough since June 16. Workforce Development Specialist Required: No Allergies No Known Allergies Allergy (Verified 07/22/25 11:49) Tobacco use date assessed: 05/27/25 Dental Screening Dental Screen Date: 05/27/25 HPI HPI Comments History of Present Illness Details The patient is a 75-year-old female with a medical history of hypertension, hyperlipidemia, hypothyroid breast cancer, insomnia, allergies, insomnia, B12 deficiency, arthritis presenting for f/up dizziness At recent visit noted She woke up got out of bed felt dizzy, continued to be dizzy through the hallway. Went to the fridge. She somehow got flung across the dining room table. She felt off balance for the rest of the day. She has had a few episodes of lightheadedness upon standing and some vertigo when she bend over and gets up. Her blood pressure has been running on the lower side She was advised to hold amlodipine. She has had some interval improvement in symptoms and blood pressure still well controlled She notes a cough for the last month, persistent. No excessive fatigue. Denies shortness of breath, fevers. No LE edema CV: Off amlodipine. BP is good off the medicine. aspirin, lipitor. Denies ches t pain, shortness of breath. Hypothyroid: On levothyroxine 75 mg daily. CKD: Stage 3. Stable Heme/Onc: tamoxifen 20mg daily. Follows with Dr Hansen. MADONNA BH: Insomnia is stable on temazepam [facility] 20[facility] Breast cancer screening November 2023 ROS see HPI PHYSICAL EXAM: GENERAL: Alert and oriented x 3. NAD EYES: EOMI. Anicteric. HENT: Moist mucous membranes. Boggy nasal mucosa LUNGS: Clear to auscultation bilaterally. CARDIOVASCULAR: Regular rate and rhythm. No JVD. ABDOMEN: Soft, non-tender +bs EXTREMITIES: No edema. Non-tender. SKIN: No rashes or lesions. Warm. NEUROLOGIC: No focal neurological deficits. CN II-XII grossly intact PSYCHIATRIC: Cooperative. Appropriate mood and affect [facility] Medical History Breast cancer Asthma Surgical History History of breast surgery History of brain surgery Family History Other Family history unknown Social History Household Members: Spouse Housing: House Are you a primary animal care specialist to a significant other at home: No Do you presently have visiting nurse or other home services: No 75 years or older and lives alone: No Alcohol intake: current Alcohol intake frequency: holidays/special occasions only Patient Tobacco Use Status: Never used Tobacco e-Cigarette/Vaping Use: Never Used Second Hand Smoke Exposure: No service: No Current occupational status: retired Current occupational exposures/hazards: No Cognitive needs: No Hearing needs: No Vision needs: No Questionnaire Thrive Questionnaire Date Thrive assessed: 11/16/24 I am a: Patient What is your living situation today?: I have a steady place to live Within the past 12 months, did the food you bought not last and you didn't have the money to get more?: Often true Within the past 12 months, did you worry whether your food would run out before you got money to buy more?: Sometimes True Do you have trouble paying for medicines?: No Do you have trouble getting transportation to medical appointments?: No Do you have trouble paying your heating and electricity bill?: No Do you have trouble taking care of your child, family member or friend?: No Do you have trouble with day-to-day activities such as bathing, preparing meals, shopping, managing finances, etc.?: No Are you currently unemployed and looking for a job?: No Are you interested in more education?: No Please select the resources that you would like help with: Food Currently or been in a relationship where the following occur: No concerns reported THRIVE Score: 2 ALANA-7 AMB Questionnaire ALANA-7 Date ALANA - 7 assessed: 05/10/24 Source: Developed by Drs. Kal Milian, Regina Mijares, Harinder Magaña and colleagues, with an educational jia from [employer]. Physical exam (Primary Care) Vital Signs: Last Vital Signs Temp 98.2 F 07/22/25 11:49 Pulse 72 07/22/25 11:49 Resp 14 07/22/25 11:49 BP 132/66 07/22/25 11:49 BMI result Body Mass Index 28.0 Tobacco/Smoking Status: Tobacco use Status Tobacco use date assessed 05/27/25 07/22/25 11:48 Patient Tobacco Use Status Never used Tobacco 07/22/25 11:48 e-Cigarette/Vaping Use Never Used 07/22/25 11:48 Thrive Assessment: Date of Thrive Assessment Date Thrive assessed 11/16/24 07/22/25 11:48 Currently or been in a relationship where the following occur: No concerns reported Coding Level of Care Code Est Pt Level 4 (28326) Complex EM visit Add On G2211 Diagnoses Primary hypertension I10 Hypertension type: primary hypertension Mixed hyperlipidemia E78.2 Hyperlipidemia type: mixed hyperlipidemia Malignant neoplasm of female breast, unspecified estrogen receptor status, unspecified laterality, unspecified site of breast C50.919 Breast location: unspecified site of breast Estrogen receptor status: unspecified Laterality: unspecified laterality Patient sex: female Dizziness R42 Assessment & Plan Assessment & Plan (1) Hypertension: Code(s): I10 - Essential (primary) hypertension Category: Medical Qualifiers: Hypertension type: primary hypertension Qualified Code(s): I10 - Essential (primary) hypertension (2) Hyperlipidemia: Code(s): E78.5 - Hyperlipidemia, unspecified Category: Medical Qualifiers: Hyperlipidemia type: mixed hyperlipidemia Qualified Code(s): E78.2 - Mixed hyperlipidemia (3) Breast cancer: Code(s): C50.919 - Malignant neoplasm of unspecified site of unspecified female breast Category: Medical Qualifiers: Breast location: unspecified site of breast Estrogen receptor status: unspecified Laterality: unspecified laterality Patient sex: female Qualified Code(s): C50.919 - Malignant neoplasm of unspecified site of unspecified female breast (4) Dizziness: Code(s): R42 - Dizziness and giddiness Category: Medical Plan Dizziness-mild residual. Improvement off amlodipine. Sinus congestion, cough-zpak and prednisone ordered. Treatment may help residual dizziness Hypothyroid-stable on levothyroxine Breast cancer-c/w tamoxifen per breast ctr Medications: New prednisone 40 mg (2 x 20 mg) PO DAILY 10 tabs 0RF azithromycin For 250 mg dose pack: take 500 mg today (day 1), then 250 mg for 4 days (days 2-5) PO 6 tabs 0RF
[2025-07-22 11:49] VITALS: BP 132/66; PULSE 72; RESP 14; TEMP 36.8; BMI 28.0
--- OUTSIDE RECORDS SUMMARY | 2025-07-22 14:10 | XMS_ITS | Clinical Summary ---
Author Organization [facility] Address [address] [place] [address] Care Team Providers Care Safety Instructor Name Role Phone Gabbie Sanchez MD Primary Care Provider [phone] Allergies No known active allergies Medications Medication [...] age to complete this topic Care Teams Safety Instructor Relationship Specialty Start Date End Date Gabbie Sanchez MD PCP - General Internal Medicine 08/30/21
--- OUTSIDE RECORDS SUMMARY | 2025-07-22 14:10 | XMS_ITS | Clinical Summary ---
Author Organization [facility] [address] [place] [address] [place] [phone] Phone Care Team Providers Care Stencil Inspector Name Role Phone Unavailable Primary Care Provider [...] propionate (FLONASE) 50 mcg/actuation nasal spray 1 [facility] by Nasal route 2 times daily. 2 [...] Care Team Description 05/11/2025 Telephone Adult Medicine [address] [address] Shireen Borja PA 04/26/2025 2:00 PM EDT Office Visit General Surgery [address] [place] [address] McPartSusan salmeron MD Ductal carcinoma in situ (DCIS) of right breast (Primary Dx) from Last 3 Months Immunizations Immunization Administration Dates Next Due Influenza trivalent, 0.5mL [...] LUMPECTOMY 09/2020 Right PROCEDURE: HISTORICAL BREAST LUMPECTOMY GA BREAST REDUCTION Medical History Medical History Date [...] PM EDT Office Visit General Surgery - [address] [place] [address] Susan Leonard MD [address] [place] [phone] Health Maintenance Due Date Last Done Comments RSV Immunization Adult Patients (1 - Risk 50-74 years 1-dose series) 2002 Falls Risk Assessment 08/24/2022 Medicare Annual Wellness [...] TEST Routine 05/05/2024 LIPID PANEL Routine 11/05/2023 [facility] DEXA AXIAL SKELETON Routine 01/29/2022 10:38 [...] is recommended in 1 year. Mammo Location: [facility], [address] [place] [address], [id number], . -------- FINAL REPORT -------- Dictated By: Millicent Watson Dictated Date: 11/26/2024 09:27 ET Assigned Physician: Millicent Watson Reviewed and Electronically Signed By: Millicent Watson Signed Date: 11/26/2024 09:33 ET Workstation ID: [id number] Transcribed By: Self Edit Transcribed Date: 11/26/2024 [...] is recommended in 1 year. Mammo Location: [facility], [address] [place] [address], [id number], . -------- FINAL REPORT -------- Dictated By: Millicent Watson Dictated Date: 11/26/2024 09:27 ET Assigned Physician: Millicent Watson Reviewed and Electronically Signed By: Millicent Watson Signed Date: 11/26/2024 09:33 ET Workstation ID: [id number] Transcribed By: Self Edit Transcribed Date: 11/26/2024 09:30 ET us Guillermo Vasquez MD IMG BI PROCEDURES Final Res ult * Annual BMP Blood Test (05/05/2024) Annual BMP Blood Test Abstracted Historical Provider HEALTH MAINTENANCE Final Result * (ABNORMAL) Lipid panel (11/05/2023) [facility] LDL/HDL Ratio 2 0 - 4 Triglycerides 144 0 - 150 mg/dL Cholesterol 214(A) 0 - 200 mg/dL HDL 91 >=40 mg/dL LDL Cholesterol 95 0 - 100 mg/dL Blood Venous blood specimen / Unknown Historical Provider LAB BLOOD ORDERABLES Shira l Result * [facility] DEXA AXIAL SKELETON (01/29/2022 10:38 AM EDT) Anatomical Region Laterality Modality Mammography 01/29/2022 9:07 AM EDT Narrative 01/29/2022 10:38 AM EDT [facility] Diagnostic Imaging Department [address] [place] [address] Patient: SELLERSHUGO D.O.B./Age/Sex: 1950 - 71 - F Unit#: [id number] [facility] Order[facility] Physician: ADDISON SMITH MD [facility] Dexa Axial Skeleton - 01/29/2296 HISTORY: The patient is a 71-year-old postmenopausal [...] probability of hip fracture of 4.7%. Code 77393 Dictating Physician: ASAD JONES MD Electronically Signed by: ASAD JONES MD Dic Date/Time: 01/29/22 1037 Sign date/Time: 01/29/22 1038 Procedure Note Asad Jones MD - 09/04/2022 [facility] Diagnostic Imaging Department [address] [place] [address] Patient: VERITOHUGO./Age/Sex: 1950 - F Unit#: [id number] Location/Status: [facility]A/REG I Mnemonic/Ordering Site: [facility] Ordering Physician: ADDISON SMITH MD [facility] Dexa Axial Skeleton - 01/29/22 - 9655 HISTORY: The patient is a 71-year-old postmenopausal [...] density of the femurs bilaterally is 0.968 gm/ml5jatgs is 96% of that of young normals [...] probability of hip fracture of 4.7%. Code 24918 Dictating Physician: ASAD JONES MD Electronically Signed by: ASAD JONES MD Dic Date/Time: 01/29/22 1037 Sign date/Time: 01/29/22 1038 Addison Smith MD IMG BI PROCEDURES Final Resu lt * Hepatitis C Screening (07/02/2021) [facility] Hepatitis C Screening Abstracted Historical Provider HEALTH MAINTENANCE Final Result * Colonoscopy (11/02/2018) [facility] Colonoscopy No Interpretation , Abstracted Anatomical Region Laterality Modality Other Historical Vanna [facility] HEALTH MAINTENANCE Final Result from Last 3 Months or Most Recently Relevant to Health Maintenance Insurance [employer] MEDICARE [place]ICA[place]
--- OUTSIDE RECORDS SUMMARY | 2025-07-22 14:10 | XMS_ITS | Clinical Summary ---
Author Organization [facility]. Address [address] [place] [address] Phone Care Team Providers Care Social Services Specialist Name Role Phone Susan Aguirre MD Primary Care Provider [phone] Allergies Active Allergy Reactions Criticality Noted Date [...] Visit [facility] [address] [address] Missael Dowling MD [address] [address] Health Maintenance Due Date Last Done Comments [...] complete this topic Insurance [address] [place] [address] [facility] [address] [place] [address] [facility] Medicare Care Teams Social Services Specialist Relationship Specialty Start Date End Date Susan Aguirre MD [address] [place] [address] PCP - General Internal Medicine 10/26/24
== END 2025-07-22 12:18 | disposition home or self-care (01) ==
LOC: HO.HMCFM 11:41
PROVIDERS: PCP Internal Medicine; Visit Provider Internal Medicine
DX: I10 Essential (primary) hypertension (principal); E78.2 Mixed hyperlipidemia; C50.919 Malignant neoplasm of unspecified site of unspecified female breast; R42 Dizziness and giddiness

== ENCOUNTER → 2025-07-22 11:41 | Outpatient (BNVA) | payer MEDICARE, SELFPAY | PROVIDERS: PCP Internal Medicine; Visit Provider Internal Medicine | DX: I12.9 Hypertensive chronic kidney disease with stage 1 through stage 4 chronic kidney disease, or unspecified chronic kidney disease (principal); N18.30 Chronic kidney disease, stage 3 unspecified; E78.2 Mixed hyperlipidemia; R42 Dizziness and giddiness; G47.00 Insomnia, unspecified; C50.919 Malignant neoplasm of unspecified site of unspecified female breast; Z79.810 Long term (current) use of selective estrogen receptor modulators (SERMs); Z79.899 Other long term (current) drug therapy | CPT/HCPCS: 99212 ==